=== PATIENT | male | born 1975 | race Caucasian/White ===

== ENCOUNTER → 2020-03-09 | Outpatient (RCR) | payer BC | END | disposition home or self-care (01) | LOC: PT | DX: Z98.890 Other specified postprocedural states (principal) ==

== ENCOUNTER 2020-03-13 14:27 | Outpatient (RCR) | payer BC | END 2020-06-09 | disposition home or self-care (01) | LOC: PT | DX: Z98.890 Other specified postprocedural states (principal) ==

== ENCOUNTER 2020-06-10 10:37 | Outpatient (RCR) | payer BC | END 2020-06-12 17:00 | disposition home or self-care (01) | LOC: PT 10:37 | DX: M25.311 Other instability, right shoulder (principal); Z98.890 Other specified postprocedural states ==

== ENCOUNTER → 2021-10-25 | Day surgery (SDC) | payer BC | LOC: MSO 09:36 | DX: D12.0 Benign neoplasm of cecum (principal) | CPT/HCPCS: 00811; J7120 ==

== ENCOUNTER → 2023-09-26 | Outpatient (CLI) | payer BC | LOC: RAD 15:52 | DX: S72.8X2A Other fracture of left femur, initial encounter for closed fracture (principal); M22.42 Chondromalacia patellae, left knee; X58.XXXA Exposure to other specified factors, initial encounter; Z91.81 History of falling ==

== ENCOUNTER → 2023-11-03 | Outpatient (CLI) | payer BC | LOC: RAD 10:21 | DX: M25.532 Pain in left wrist (principal); Z87.81 Personal history of (healed) traumatic fracture ==